=== PATIENT | female | born 1985 | race Caucasian/White ===

== ENCOUNTER 2016-04-18 11:53 | Emergency (ER) | payer MEDICAID ==
[~2016-04-18] VITALS: Wt 72.6 kg
[~2016-04-18 11:53] MED LIST: IBUP-1542 PO
[2016-04-18] MEDS ORDERED: ACETAMINOPHEN 500 MG TAB PO STA (13:23)
[2016-04-18 13:39] LABS: URINE BLOOD (Dip) POC 3+ (NEGATIVE)
--- NOTE | 2016-04-18 13:40 | ERD ---
ER Documentation Chief Complaint Date/Time DATE: 04/18/16 TIME: 13:39 Chief Complaint vaginal bleeding since 0400. mild ap and dysuria noted. 14wks preg HPI This is a 30-year-old female who presents to the emergency department today complaining of vaginal bleeding that started this morning. Patient states she has some mild abdominal pain that goes around to her back. States she has not seen an SOUBRETTE yet but has her first appointment for an ultrasound on May 09. States that she is approximately 14 weeks . States she took Tylenol last night for her headache. Denies any fevers or chills or dysuria. ROS All systems reviewed and are negative except as per history of present illness. Medications Home Meds Active Scripts Dextromethorphan Hb-Promethazine Hcl (Promethazine DM Syrup) 473 Ml Syrup, 5 ML PO Q6H Y for COUGH, #4 OZ Prov:SHAW BOOKER PA-C 04/18/16 Cephalexin* (Keflex*) 500 Mg Capsule, 500 MG PO QID for 7 Days, CAP Prov:PROSHAW MCFARLAND PA-C 04/18/16 Acetaminophen* (Tylophen*) 500 Mg Capsule, 1 CAP PO Q6H Y for PAIN AND OR ELEVATED TEMP, #30 CAP Prov:SHAW BOOKER PA-C 04/18/16 Ibuprofen* (Motrin*) 600 Mg Tab, 600 MG PO Q6, #20 TAB Prov:DENZEL TSANG MD 12/30/15 Allergies Allergies: Coded Allergies: No Known Drug Allergy (Verified Allergy, Unknown, 01/13/14) Uncoded Allergies: NKDA (Allergy, Mild, 07/22/10) PMhx/Soc Hx Alcohol Use: No Hx Substance Use: No Hx Tobacco Use: No Physical Exam Vitals Vital Signs Date Time Temp Pulse Resp B/P Pulse Ox O2 Delivery O2 Flow Rate FiO2 04/18/16 11:56 98.3 92 20 119/81 99 Physical Exam Const: No acute distress Head: Atraumatic Eyes: Normal Conjunctiva ENT: Normal External Ears, Nose throat no erythema no exudate. Neck: Full range of motion..~ No meningismus. Resp: Clear to auscultation bilaterally Cardio: Regular rate and rhythm, no murmurs Abd: Soft, diffuse mild pelvic pain non distended. Normal bowel sounds Skin: No petechiae or rashes Back: No midline or flank tenderness. No CVA tenderness. Ext: No cyanosis, or edema Neur: Awake and alert Psych: Normal Mood and Affect Result Diagram: 04/18/16 1350 Results 24 hrs Laboratory Tests Test 04/18/16 13:40 04/18/16 13:42 04/18/16 13:50 Urine Bacteria FEW Urine Bilirubin NEGATIVE Urine Clarity CLEAR Urine Color LT. YELLOW Urine Epithelial Cells MODERATE Urine Glucose NEGATIVE% Urine Hemoglobin 3+ Urine Ketones NEGATIVE Urine Leukocyte Esterase 1+ Urine Microscopic RBC 5-10/HPF Urine Microscopic WBC 10-25/HPF Urine Nitrite NEGATIVE Urine Specific [place] 1.010 Urine Total Protein NEGATIVE Urine Urobilinogen 1.0 E.U./dL Urine pH 7.0 Bedside Urine Blood 3+ Bedside Urine Glucose (UA) Negative Bedside Urine Ketones (LAB) Trace Bedside Urine Leukocyte Esterase (L 1+ Bedside Urine Nitrite (LAB) Negative Bedside Urine Protein (LAB) Trace Bedside Urine pH (LAB) 7.0 Basophils # 0.110^3/ul Basophils % 0.9% Beta HCG, Quantitative 48258.0mIU/ml Eosinophils # 0.510^3/ul Eosinophils % 6.9% Hematocrit 34.9% Hemoglobin 11.8g/dl Lymphocytes # 2.110^3/ul Lymphocytes % 30.0% Mean Corpuscular Hemoglobin 30.3pg Mean Corpuscular Hemoglobin Concent 33.8g/dl Mean Corpuscular Volume 89.5fl Mean Platelet Volume 10.3fl Monocytes # 0.610^3/ul Monocytes % 8.6% Neutrophils # 3.710^3/ul Neutrophils % 53.3% Nucleated Red Blood Cells # 0.010^3/ul Nucleated Red Blood Cells % 0.0/100WBC Platelet Count 31793^3/UL Red Blood Count 3.9010^6/ul Red Cell Distribution Width 13.4% White Blood Count 7.010^3/ul Current Medications Medications (Trade) Dose Ordered Sig/Brea Route PRN Reason Start Time Stop Time Status Last Admin Dose Admin Acetaminophen (Tylenol Tab) 500 mg ONCE STAT PO 04/18/16 13:23 04/18/16 13:25 DC 04/18/16 13:34 atient: HUNG LOVE : 1985 Age: 30 Sex: F MR #: [id number] DOS: 04/18/16 0000 Ordering MD: SHAW BOOKER PA-C Location: [facility] Room/Bed: PROCEDURE: US OB CLINICAL INDICATION: vaginal bleeding in 14 weeks TECHNIQUE: Multiple sonographic images of the pelvis were obtained. The images were reviewed on a PACS workstation. COMPARISON: None FINDINGS: The cervix is not well visualized. There is a single viable intrauterine gestation. Cardiac activity is present with 148 beats per minute. There is a vertex presentation. The placenta is anterior. There is no evidence for an abruption or placenta previa. There is a normal amount of amniotic fluid with a maximum vertical pocket of 3.3 cm. Measurements were made in order to determine age. The results are as follows (cm): BPD = 2.79 HC = 10.47 AC = 9.02 FL = 1.34 Estimated gestational age by ultrasound of approximately 14 weeks, 6 days. The estimated date of delivery by ultrasound is 10/11/2016. Reported gestational age by LMP of approximately 14 weeks, 2 days. The reported date of delivery by LMP is 10/15/2016. EFW = 103 grams (60th percentile) IMPRESSION: Single viable intrauterine gestation of approximately 14 weeks, 6 days . The estimated date of delivery is 10/11/2016 . Dating by ultrasound is within 4 days of dating by LMP. Estimated weight in the 60th percentile. RPTAT: EE Physician Harry Date Time Electronically viewed and signed by Physician Harry on 04/18/2016 14:17 RA/ CC: SHAW BOOKER PA-C Procedures/MDM This is a 30-year-old female who presents to the emergency department vaginal bleeding. Patient indicated she was 14 weeks . Given this I did obtain a complete OB workup. Laboratory work shows no elevated white blood cell count. Her hemoglobin is mildly decreased. Platelets are within normal limits. UA shows 1+ leukocyte esterase and 10-25 microscopic white blood cells. Patient will be given a prescription for Keflex for urinary tract infection. Rh status A + Beta quant hCG 00213.0 Ultrasound shows a single viable intrauterine gestation of approximately 14 weeks and 6 days. Estimated date of delivery is October 11, 2016. Estimated weight is 68th percentile. The placenta is anterior. There is no evidence for an abruption or placenta previa. There is a normal amount of amniotic fluid. Patient was given Tylenol here in the emergency department she will be given a prescription for home.. Patient also be given a prescription for Keflex for urinary tract infection. Prior to discharge patient mentioned that she had a sore throat and cough. Physical exam is benign. Do not feel the patient requires a chest x-ray. She is afebrile and otherwise well-appearing. Her oxygen saturation is 99%. Was suspicion for pneumonia, PE, abscess, pneumothorax. Low suspicion for strep pharyngitis, retropharyngeal abscess, peritonsillar abscess. Patient symptoms at this time is consistent with URI likely viral. Give her a prescription for Promethazine DM. At this time the patient is stable for discharge and outpatient management. Patient should follow up with their PCP in the next 1-2 days. They may return to the emergency department sooner for any persistent or worsening of symptoms. Patient understood and agreed with the plan. I discussed the patient with Dr. Tsang and he is in agreement with the plan. Departure Diagnosis: Primary Impression: Vaginal bleeding in Trimester: second trimester Qualified Code: O46.92 - Vaginal bleeding in , second trimester Additional Impression: URI (upper respiratory infection) URI type: unspecified URI Qualified Code: J06.9 - Upper respiratory tract infection, unspecified type Condition: SHAW Landry PA-C Apr 18, 2016 13:40
[2016-04-18 14:05] LABS: ADD SCAN DIFF NO
[2016-04-18 14:06] LABS: ADD UMIC YES; URINE BILIRUBIN (Dip) NEGATIVE (NEGATIVE); URINE BLOOD (Dip) 3+ (NEGATIVE); URINE COLOR LT. YELLOW (YELLOW); URINE GLUCOSE (Dip) NEGATIVE (NEGATIVE); URINE KETONES (Dip) NEGATIVE (NEGATIVE); URINE LEUKOCYTE ESTERASE (Dip) 1+ (NEGATIVE); URINE NITRITE (Dip) NEGATIVE (NEGATIVE); URINE TOTAL PROTEIN (Dip) NEGATIVE (NEGATIVE); URINE UROBILINOGEN (Dip) 1.0 E.U./dL (0.1-1.0)
[2016-04-18 14:11] LABS: BASOPHIL # 0.1 10^3/ul (0.0-0.1); BASOPHILS % 0.9 % (0.0-2.0); EOSINOPHILS # 0.5 10^3/ul (0.0-0.5); EOSINOPHILS % 6.9 % (0.0-7.0); HEMATOCRIT 34.9 % (37.0-47.0); HEMOGLOBIN 11.8 g/dl (12.0-16.0); LYMPHOCYTES # 2.1 10^3/ul (0.8-2.9); MEAN CORPUSCULAR HEMOGLOBIN 30.3 pg (29.0-33.0); MEAN CORPUSCULAR HGB CONC 33.8 g/dl (32.0-37.0); MEAN CORPUSCULAR VOLUME 89.5 fl (82.0-101.0); MEAN PLATELET VOLUME 10.3 fl (7.4-10.4); MONOCYTE # 0.6 10^3/ul (0.3-0.9); MONOCYTES % 8.6 % (0.0-11.0); NEUTROPHIL # 3.7 10^3/ul (1.6-7.5); NEUTROPHILS % 53.3 % (39.0-77.0); PLATELET COUNT 341 10^3/UL (140-415); RED CELL DISTRIBUTION WIDTH 13.4 % (11.5-14.5)
--- NOTE | 2016-04-18 14:17 | RADRPT ---
PROCEDURE: US OB CLINICAL INDICATION: vaginal bleeding in 14 weeks TECHNIQUE: Multiple sonographic images of the pelvis were obtained. The images were reviewed on a PACS workstation. COMPARISON: None FINDINGS: The cervix is not well visualized. There is a single viable intrauterine gestation. Cardiac activity is present with 148 beats per minute. There is a vertex presentation. The placenta is anterior. There is no evidence for an abruption or placenta previa. There is a normal amount of amniotic fluid with a maximum vertical pocket of 3.3 cm. Measurements were made in order to determine age. The results are as follows (cm): BPD =2.79 HC =10.47 AC =9.02 FL =1.34 Estimated gestational age by ultrasound of approximately 14 weeks, 6 days. The estimated date of delivery by ultrasound is 10/11/2016. Reported gestational age by LMP of approximately 14 weeks, 2 days. The reported date of delivery by LMP is 10/15/2016. EFW = 103 grams (60th percentile) IMPRESSION: Single viable intrauterine gestation of approximately 14 weeks, 6 days . The estimated date of delivery is 10/11/2016 . Dating by ultrasound is within 4 days of dating by LMP. Estimated weight in the 60th percentile. RPTAT: EE Physician Harry Date Time Electronically viewed and signed by Physician Harry on 04/18/2016 14:17 /
[2016-04-18 14:26] LABS: BACTERIA,URINE FEW
[2016-04-18] MEDS ORDERED: CEPH-443 PO (15:33)
[2016-04-18] MEDS ORDERED: ACET500C5 PO (15:33)
[2016-04-18] MEDS ORDERED: D-ME473S18 PO (15:36)
== END 2016-04-18 15:51 | disposition home or self-care (01) ==
LOC: FTE 11:53
DX: O46.92 Antepartum hemorrhage, unspecified, second trimester (principal); O99.512 Diseases of the respiratory system complicating pregnancy, second trimester; J06.9 Acute upper respiratory infection, unspecified; R10.2 Pelvic and perineal pain; Z3A.14 14 weeks gestation of pregnancy
CPT/HCPCS: 76805; 81001; 84702; 85025; 86900; 86901; Z7502; Z7610; 81003

== ENCOUNTER 2016-09-13 16:51 | Inpatient (IN) | payer MEDICAID ==
[~2016-09-13] VITALS: Ht 144.8 cm; Wt 78.4 kg
[~2016-09-13 16:51] MED LIST changes: +ACET500C5 PO; +CEPH-443 PO; +D-ME473S18 PO
[2016-09-13 17:04] VITALS: Ht 144.8 cm; Wt 78.4 kg
[2016-09-13 17:05] VITALS: BP 111/73
[2016-09-13] MEDS ORDERED: PREN1TAB17 PO (17:07)
--- NOTE | 2016-09-13 17:42 | RADRPT ---
PROCEDURE: US biophysical profile. CLINICAL INDICATION: Decreased motion. TECHNIQUE: Multiple sonographic images of the uterus were obtained. The images were revi ewed on a PACS workstation. COMPARISON: No prior studies are available for comparison. FINDINGS: There is a single live intrauterine gestation. heart rate is 154 beats per minute. The position is cephalic. The placenta is anterior grade II with no abruption or previa. The SHWETHA is 9.5 cm. (Normal = 5-20 cm.) Breathing Movement: 2 Gross Body Movement: 2 Tone: 2 Qualitative Amniotic Fluid Volume: 2 TOTAL: 8 IMPRESSION: 1. The biophysical score is 8/8. RPTAT: QQ .Tim Bee MD, MD Date Time Electronically viewed and signed by .Tim Bee MD, on 09/13/2016 17:42 .R/
[2016-09-13 19:04] LABS: ALBUMIN 3.3 g/dl (3.3-4.9); TOTAL PROTEIN 7.1 g/dl (6.1-8.1)
[2016-09-13] MEDS ORDERED: LACTATED RINGER'S 1,000 ML IV SCH (21:40)
[2016-09-13] MEDS: BETAMET NA PHOS/AC(6 MG/ML) 5ML INJ IM SCH (22:52)
[2016-09-13] MEDS: URSODIOL 300 MG CAP PO SCH (23:09)
--- NOTE | 2016-09-13 23:57 | HP ---
Date/Time of Note Date/Time of Note DATE: 09/13/16 TIME: 23:48 OB - History Hx of Present Free Text/Dictation September 13, 2016 : 8 Para: 6 Other Concerns: 31-year-old with IUP at 35 weeks and 4 days with [facility] presented with complaint of whole body itching started 2 days ago. Itching including palms and soles denies any body rash. She denies any leaking of fluid or vaginal bleeding as well as decreased movement. NST category 2 in triage. She had initially some contractions and had slight cervical change however stated at 2-3 cm dilatation with no further change. Patient is grand multiparous. Due to concern for possibility of late delivery based on initial cervical change as well as possibility of cholestasis of based on symptoms patient was admitted to antepartum service for observation. LFT and bile acids were drawn. LFT was normal. Bile acids are pending. Discussed with the patient regarding steroids. Patient was observed overnight. Will receive accelerated doses of steroid. If no cervical change occurs may consider discharge home tomorrow with continue NST twice a week as well as follow-up of bile acids with a strict close monitoring. Plan discussed with the patient and patient agreed to proceed with above plan. \ Past Family/Social History * Past Medical, Surgical, Family and Obstetric Histories reviewed from chart. OB Admission Exam Vital Signs Vital Signs Vital Signs Date Time Temp Pulse Resp B/P Pulse Ox O2 Delivery O2 Flow Rate FiO2 09/13/16 17:05 98.4 111/73 Physical Exam HEENT: WNL Lungs: Clear Abdomen: WNL Extremities: Normal Reflexes: Normal Cervical Dilatation: 2cm Effacement: 75% Station: -1 Membranes: Intact Heart Rate: 140's Accelerations: Accelerations Present Decelerations: Early Decelerations Varibility: Moderate Contractions on Admission: < 5 Minutes Apart Intensity: Mild Last 72 hours Lab Results Liver Function Test 09/13/16 17:52 Alanine Aminotransferase (ALT/SGPT) 40 Albumin 3.3 Alkaline Phosphatase 197 H Aspartate Amino Transf (AST/SGOT) 38 Direct Bilirubin 0.00 Total Protein 7.1 OB Assessment/Plan Other Assessment: IUP at 35 weeks and 4 days Whole body itching, including palms and soles no rash, Cannot rule out cholestasis of LFTs normal Bile acids pending ursodiol 300 mg p.o. 3 times daily started, contraction with cervical change Grand multiparous Admitted for observation Consider steroids due to possibility and risk for delivery May discharge home tomorrow with close surveillance antepartum testing if no further cervical change and after receive second, dose of accelerated steroid plan discussed with the patient GBS prophylaxis IZA WERNER MD Sep 13, 2016 23:57
[2016-09-14] MEDS ORDERED: AMPICILLIN 2 GM/NS (PMX) 100 ML IVPB ONE
[2016-09-14] MEDS ORDERED: AMPICILLIN 1 GM/NS (PMX) 50 ML IVPB SCH ×2 (01:00→04:00)
--- NOTE | 2016-09-14 03:43 | TRIAGE ---
OB Triage Datetime Report Generated by CPN: 09/14/2016 03:43 Datetime: 09/14/2016 20:45 Stage of : OB Triage Vaginal Exam Dilatation (cms): 2.5 Effacement (%): 70 Station: -2 Exam By: GKashman, RN Datetime: 09/14/2016 03:00 Labor Evaluation Frequency: x3 Monitor Mode: External Duration (sec)2399: 50-80 Quality: Mild Resting Tone [place]: Relaxed Contraction Comments: pt without complaint of uc pain Heart Rate FHR Baseline Rate: 130 Monitor Mode: External US FHR Baseline Changes: No Baseline Change Variability: Moderate 6-25 bpm Accelerations: 15X15 Decelerations: None Category: Category I Datetime: 09/14/2016 02:00 Labor Evaluation Frequency: x2 Monitor Mode: External Duration (sec)2399: 40-60 Quality: Mild Resting Tone [place]: Relaxed Contraction Comments: pt without complaint of uc pain. Heart Rate FHR Baseline Rate: 130 Monitor Mode: External US FHR Baseline Changes: No Baseline Change Variability: Moderate 6-25 bpm Accelerations: 15X15 Decelerations: None Category: Category I Datetime: 09/14/2016 01:00 Labor Evaluation Frequency: x1 Monitor Mode: External Duration (sec)2399: 40 Quality: Mild Resting Tone [place]: Relaxed Contraction Comments: pt states minimal uc felt at 1 out of 10 Heart Rate FHR Baseline Rate: 130 Monitor Mode: External US FHR Baseline Changes: No Baseline Change Variability: Moderate 6-25 bpm Accelerations: 15X15 Decelerations: None Category: Category I Datetime: 09/14/2016 00:00 Labor Evaluation Frequency: x2 Monitor Mode: External Duration (sec)2399: 60 Quality: Mild Resting Tone [place]: Relaxed Contraction Comments: pt feels uc at 5 out of 10 Heart Rate FHR Baseline Rate: 135 Monitor Mode: External US FHR Baseline Changes: No Baseline Change Variability: Moderate 6-25 bpm Accelerations: 15X15 Decelerations: None Category: Category I Pain Assessment Pain Scale: 6 Pain Presence: Intermittent Pain Type: Cramping Pain Location: Abdomen Pain Goal: 0 Pain Assessment Comments: pt feels uc at 5 out of 10. Datetime: 09/13/2016 23:00 Labor Evaluation Frequency: x2 Monitor Mode: External Duration (sec)2399: 70-90 Quality: Mild Resting Tone [place]: Relaxed Contraction Comments: pt c/o uc pain att 5 out of 10. Heart Rate FHR Baseline Rate: 130 Monitor Mode: External US FHR Baseline Changes: No Baseline Change Variability: Moderate 6-25 bpm Accelerations: 15X15 Decelerations: None Category: Category I Pain Assessment Pain Scale: 5 Pain Presence: Intermittent Pain Type: Cramping Pain Location: Abdomen Pain Goal: 0 Pain Assessment Comments: will po hydrate Datetime: 09/13/2016 22:09 Stage of : Antepartum Temperature Route: Oral Datetime: 09/13/2016 21:48 Assessment Type: Admission Assessment Vaginal Bleeding: None Maternal Assessment Level of Consciousness: Fully Conscious DTR's/Clonus: DTRs 2+; No Clonus Headache: Denies Blurred Vision: No Respiratory Effort: Unlabored; Regular Rhythm; Equal Expansion Breath Sounds, Left: Clear and Equal Breath Sounds, Right: Clear and Equal Nausea/Vomiting: Denies RUQ Epigastric Pain: Denies Lower Extremities Edema: None Degree: None Upper Extremities Edema: None Degree: None Facial Edema: None Fall Risk Assessment History of Falling: (0) No Secondary Diagnosis: (0) No Ambulatory Aid: (0) Bedrest/Nurse Assist IV Therapy: (0) No Gait: (0) Normal/Bedrest/Immobile Mental Status: (0) Oriented to Own Ability Fall Score: 0 Fall Risk Score Definition: No Risk: No action required Labor Evaluation Frequency: irregular Duration (sec)2399: 70-90 Quality: Mild Resting Tone [place]: Relaxed Contraction Comments: pt c/o ucs at 5 out of 10 on the pain scale. Will po hydrate, Heart Rate FHR Baseline Rate: 130 Variability: Moderate 6-25 bpm Accelerations: 15X15 Decelerations: None Category: Category I Pain Assessment Pain Scale: 5 Pain Presence: Intermittent Pain Type: Cramping Pain Location: Abdomen Pain Goal: 0 Membrane Status: Intact Datetime: 09/13/2016 21:29 Stage of : OB Triage Labor Evaluation Frequency: 5-10 Monitor Mode: External Duration (sec)2399: 50-60 Pattern: Normal: <= 5 Contractions in 10 Minutes Resting Tone [place]: Relaxed Heart Rate FHR Baseline Rate: 130 Monitor Mode: External US Variability: Moderate 6-25 bpm Accelerations: 15X15 Decelerations: None Category: Category I Pain Assessment Pain Scale: 2 Pain Presence: Intermittent Pain Type: Contraction Pain Location: Abdomen Pain Relief Measures: Comfort Measures Datetime: 09/13/2016 20:55 Stage of : OB Triage Datetime: 09/13/2016 20:29 Stage of : OB Triage Labor Evaluation Frequency: 5-7 Monitor Mode: External Duration (sec)2399: 40-60 Pattern: Normal: <= 5 Contractions in 10 Minutes Resting Tone [place]: Relaxed Heart Rate FHR Baseline Rate: 125 Monitor Mode: External US Variability: Moderate 6-25 bpm Accelerations: 15X15 Decelerations: None Category: Category I Pain Assessment Pain Scale: 7 Pain Presence: Intermittent Pain Type: Contraction Pain Location: Abdomen Pain Relief Measures: Comfort Measures Datetime: 09/13/2016 19:35 Stage of : OB Triage Vaginal Exam Dilatation (cms): 2.5 Effacement (%): 70 Station: -2 Exam By: VIVIEN Galdamez Vaginal Bleeding: None Cervix, Consistency: Soft Cervix, Position: Midposition Presentation 'A': Cephalic Datetime: 09/13/2016 19:31 Stage of : OB Triage Labor Evaluation Frequency: 5-8 Monitor Mode: External Duration (sec)2399: 40-80 Pattern: Normal: <= 5 Contractions in 10 Minutes Resting Tone [place]: Relaxed Heart Rate FHR Baseline Rate: 120 Monitor Mode: External US Variability: Moderate 6-25 bpm Accelerations: 15X15 Decelerations: None Category: Category I Pain Assessment Pain Scale: 7 Pain Presence: Intermittent Pain Type: Contraction Pain Location: Abdomen Pain Relief Measures: Comfort Measures Datetime: 09/13/2016 19:30 Stage of : OB Triage Labor Evaluation Frequency: irregular Monitor Mode: External Duration (sec)2399: 50-80 Pattern: Normal: <= 5 Contractions in 10 Minutes Resting Tone [place]: Relaxed Heart Rate FHR Baseline Rate: 125 Monitor Mode: External US Variability: Moderate 6-25 bpm Accelerations: 15X15 Decelerations: None Category: Category I Pain Assessment Pain Scale: 7 Pain Presence: Intermittent Pain Type: Contraction Pain Location: Abdomen Pain Relief Measures: Comfort Measures Datetime: 09/13/2016 19:22 Stage of : OB Triage Monitor Mode: External Monitor Mode: External US Datetime: 09/13/2016 19:17 Stage of : OB Triage Datetime: 09/13/2016 17:40 Comments: BACK ON MONITOR Datetime: 09/13/2016 17:00 Stage of : OB Triage Assessment Type: Triage Maternal Assessment Level of Consciousness: Fully Conscious DTR's/Clonus: DTRs 2+; No Clonus Headache: Denies Blurred Vision: No Respiratory Effort: Unlabored; Regular Rhythm; Equal Expansion Breath Sounds, Left: Clear and Equal Breath Sounds, Right: Clear and Equal Nausea/Vomiting: Denies RUQ Epigastric Pain: Denies Lower Extremities Edema: None Degree: None Upper Extremities Edema: None Degree: None Facial Edema: None Temperature Route: Oral Fall Risk Assessment History of Falling: (0) No Secondary Diagnosis: (0) No Ambulatory Aid: (0) Bedrest/Nurse Assist IV Therapy: (0) No Gait: (0) Normal/Bedrest/Immobile Mental Status: (0) Oriented to Own Ability Fall Score: 0 Fall Risk Score Definition: No Risk: No action required Labor Evaluation Frequency: X1 Monitor Mode: External Duration (sec)2399: 30-40 Pattern: Normal: <= 5 Contractions in 10 Minutes Datetime: 09/13/2016 16:53 Time of Arrival: 09/13/2016 22:00 EGA: 35.4 Arrived By: Ambulatory Arrived From: Home Datetime: 09/13/2016 16:45 Time of Arrival: 09/13/2016 16:45 Arrived By: Ambulatory Arrived From: Dr. Diop Chief Complaint: SENT FROM DR. DIOP TO R/O CHOLESTASIS NST. BPP, BILE ACIDS Movement: Present Contractions: Irregular Time Contractions Began: 09/12/2016 17:00 Rupture of Membranes: Denies Vaginal Bleeding: None Vaginal Discharge: Denies Recent Sexual Intercouse: Denies Abdominal Trauma: Not Applicable Patient Complaints: Contractions Time Provider Notified: 09/13/2016 17:02 Provider Notified: Initial Plan: EFM, VS, MAX NGUYEN
--- NOTE | 2016-09-14 07:59 | PN ---
Date/Time of Note Date/Time of Note DATE: 09/14/16 TIME: 07:53 OB Subjective Subjective Subjective 35 weeks 5 days, resting in bed minimal itching on both palms currently on ursodiol 300 mg 3 times daily second dose of steroid do this evening, FHT category 1, result of the bile acid not available, perinatology consult requested Plan, pending perinatologist recommendation OB Assessment/Plan Reason for admission: other (Suspected cholestasis of ) Plan: Expectant Management JANET EID MD Sep 14, 2016 07:59
[2016-09-14] MEDS: URSODIOL 300 MG CAP PO SCH ×3 (08:49→20:54)
[2016-09-14] MEDS: PRENATAL VITAMIN PO SCH (08:50)
[2016-09-14] MEDS ORDERED: URSODIOL 300 MG CAP PO SCH (09:00)
[2016-09-14] MEDS: BETAMET NA PHOS/AC(6 MG/ML) 5ML INJ IM SCH (12:46)
[2016-09-15] MEDS ORDERED: ACETAMINOPHEN 325 MG TAB PO PRN (08:00)
[2016-09-15] MEDS: URSODIOL 300 MG CAP PO SCH ×2 (08:42→12:42)
[2016-09-15] MEDS: PRENATAL VITAMIN PO SCH (08:43)
--- NOTE | 2016-09-15 14:13 | DS ---
Date/Time of Note Date/Time of Note DATE: 09/15/16 TIME: 14:11 Discharge Summary Admission/Discharge Info Admit Date/Time Sep 13, 2016 at 21:29 Discharge Date/Time Discharge Diagnosis iup 35 weeks rule out cholestatis Consults MFM Hospital Course pt admitted for rule our cholestais . labs wnl bile acids pending seen by MFM and cleared to [place] home NST sunday er precautions Home Meds Active Scripts Dextromethorphan Hb-Promethazine Hcl (Promethazine DM Syrup) 473 Ml Syrup, 5 ML PO Q6H Y for COUGH, #4 OZ Prov:SHAW BOOKERC 04/18/16 Cephalexin* (Keflex*) 500 Mg Capsule, 500 MG PO QID for 7 Days, CAP Prov:SHAW BOOKERC 04/18/16 Acetaminophen* (Tylophen*) 500 Mg Capsule, 1 CAP PO Q6H Y for PAIN AND OR ELEVATED TEMP, #30 CAP Prov:SHAW BOOKER PA-C 04/18/16 Ibuprofen* (Motrin*) 600 Mg Tab, 600 MG PO Q6, #20 TAB Prov:DNEZEL CARCAMO MD 12/30/15 Reported Medications Vit-Iron Fumarate-FA ( Tablet) 1 Each Tablet, 1 TAB PO, TAB 09/13/16 Primary Care Provider Care Physician No Primary Pending Labs LFT wnl bile acids pending to be follow up with own DANIELLE WYATT MD Sep 15, 2016 14:13
--- NOTE | 2016-09-15 15:25 | PERINOTE ---
Date/Time of Note Date/Time of Note DATE: 09/15/16 TIME: 14:38 Assessment/Recommendations Other Assessments Late IUP Itching, possible cholestasis. Bile acids pending Recommendations: Intrahepatic Cholestasis of (ICP) ICP occurs in 0.1-15% of pregnancies most often in the third trimester of . It is characterized by generalized and often intolerable pruritis, especially of the palms and soles of the feet in the absence of a rash ( although excoriations may be present). An elevation of fasting serum bile acids >10mol/L confirms the diagnosis; other liver function tests (such as AST and ALT) may also be abnormal. The exact cause of the disorder is unknown but it is likely multifactorial including genetic, hormonal and environmental factors. Maternal outcome is generally good with complete resolution of the disorder shortly after delivery of the infant. Improvement of the symptomotology can be achieved while with the use of antihistamines and ursodiol. risks are significant and include prematurity (19-60%), intrapartum distress (22-41%), and intrauterine demise (0.75-1.6%). demise may be more common after 37 weeks of gestation. It may occur despite recent normal testing. risk can be predicted based on the fasting bile acid levels, with mild disease designated by levels 10-39mol/L, moderate disease by levels 40-99mol/ L and severe disease >100mol/L. The risk of complications appears to increase with increasing bile acid levels. IF THE PATIENT IS FOUND TO HAVE CHOLESTASIS: 1. Maternal management: --Treatment of ICP is best achieved with ursodeoxycholic acid (ursodiol) dosed at 15mg/kg/day; for many patients this approximates 1g/day in divided doses. --Antihistamines such as Benadryl may be used for added symptom relief. --NOTE: As ICP has been reported to be associated with lipid malabsorption , there could be a risk of a coagulopathy due to vitamin K deficiency. This appears to be rare. There are no recommendations for treatment, but it seems prudent to encourage the patient to take a vitamin K-containing vitamin. 2. Recommended weight gain: BMI < 18.5 (underweight) Total weight gain 28-40 lbs, 1-1.3 lbs/wk in the third trimester BMI 18.5-24.9 (normal) Total weight gain 25-35 lbs, 0.8-1 lbs/wk in the third trimester BMI 25.0-29.9 (overweight) Total weight gain 15-25 lbs, 0.5-0.7 lbs/wk in the third trimester BMI >30 (obese) Total weight gain 11-20 lbs, 0.4-0.6 lbs/wk in the third trimester 3. management --Monitoring of growth: Fundal height assessment at care visits. Refer for ultrasound for growth if concern for altered growth. --Monitoring of well being: Twice-weekly testing starting at 32 weeks in patients whose total serum bile acids exceed 40mol/L. Consider weekly testing for mild ICP ( bile acids 10-39mol/L). NOTE: Although ursodiol treatment may decrease serum bile acids, its effect on outcome is unproven. It may be prudent to continue to monitor as high-risk a with any bile acid values in the high risk range. 4. Laboratory studies: --Diagnosis is made by serum bile acid levels that exceed 10mol/L. Bile acid determination should be done with the patient fasting. Patients with cholestasis may have an exaggerated rise in bile acids after meals --Bile acids as well as AST and ALT can be assessed on a weekly basis until delivery. 5. Delivery: NOTE: There is no data indicating an optimal time of delivery in cholestasis. Delivery timing is a matter of expert opinion, and is generally related to fasting bile acid levels. Other factors, such as maternal LFTs may also be taken into account. All of the following recommendations assume reassuring testing and stable maternal condition. --For severe disease, especially with maternal jaundice, early delivery (36 weeks) with or without confirmation of lung maturity is advised. --For moderate disease, delivery at 37 weeks has been proposed --For mild disease the can be allowed to continue to term, although most would not allow the to continue beyond 39-40 weeks. 6. management: Ursodiol can be continued in the period until resolution of symptoms. OB Subjective Free Text/Dictaton Patient admitted with contractions and itching, undergoing work up for cholestasis. LFTs are in the normal range for HD# 3 IUP @ 35W4D Complaints/Overnight events Denies contractions at this time. Bile acid levels pending Current Medications Current Medications Prenat Multivit/ Pen Rider/Iron/Folic Ac () 1 tab DAILY PO Last administered on 09/15/16 08:43; Admin Dose 1 TAB; Start 09/14/16 at 09:00 Ursodiol (Actigall) 300 mg TID PO Last administered on 09/15/16 12:42; Admin Dose 300 MG; Start 09/13/16 at 22:51 Acetaminophen (Tylenol Tab) 650 mg Q6H PRN PO PAIN AND OR ELEVATED TEMP Last administered on 09/15/16 07:38; Admin Dose 650 MG; Start 09/15/16 at 08:00 Past Medical History Medical History: no pertinent history Surgical History: no surgical history Para: 6 : 8 LMP (Females 10-50): Family History Significant Family History: no pertinent family hx Social History Smoker: non-smoker Alcohol: none Drugs: none OB Admission Exam Physical Exam Vitals: Vital Signs Date Time Temp Pulse Resp B/P Pulse Ox O2 Delivery O2 Flow Rate FiO2 09/13/16 17:05 98.4 111/73 09/15/16 81 99/57 Abdomen: WNL Heart Rate: 120's Accelerations: Accelerations Present Decelerations: No Decelerations Varibility: Moderate Contractions on Admission: None Last 72 hours Lab Results Liver Function Test 09/13/16 17:52 Alanine Aminotransferase (ALT/SGPT) 40 Albumin 3.3 Alkaline Phosphatase 197 H Aspartate Amino Transf (AST/SGOT) 38 Direct Bilirubin 0.00 Total Protein 7.1 Copies To: CC: JANET EID MD, MARIE H MD Sep 15, 2016 15:25
== END 2016-09-15 15:36 | disposition home or self-care (01) | DRG 781 ==
LOC: OBT 16:51 → L-D 16:51 → OBG 21:29 → OBT 21:52
PROVIDERS: ADMIT Obstetrics & Gynecology; ATTEND Obstetrics & Gynecology
DX: O26.613 Liver and biliary tract disorders in pregnancy, third trimester (principal); K83.1 Obstruction of bile duct; O26.893 Other specified pregnancy related conditions, third trimester; Z3A.35 35 weeks gestation of pregnancy
CPT/HCPCS: 76818; 80076; 83789; G0463; J0702; J7120

== ENCOUNTER 2016-09-20 12:45 | Inpatient (IN) | payer MEDICAID ==
[~2016-09-20] VITALS: Ht 144.8 cm; Wt 78.2 kg
[~2016-09-20 12:45] MED LIST changes: -ACET500C5 PO; -CEPH-443 PO; -D-ME473S18 PO; -IBUP-1542 PO; +PREN1TAB17 PO
[2016-09-20 13:11] VITALS: Ht 144.8 cm; Wt 78.2 kg
[2016-09-20 13:12] VITALS: BP_SYST 103; PULSE 93; RESP 18
--- NOTE | 2016-09-20 15:49 | RADRPT ---
PROCEDURE: US OB biophysical profile. CLINICAL INDICATION: decreased movements, abdominal pain TECHNIQUE: Multiple sonographic images of the pelvis were obtained. The images were reviewed on a PACS workstation. COMPARISON: No prior studies are available for comparison. FINDINGS: There is a single viable intrauterine gestation. Cardiac activity is present with 112 beats per min [place]. There is a vertex presentation. The placenta is anterior. There is no evidence of placental abruption. There is a decreased amount of amniotic fluid with an SHWETHA = 6.3 cm. Biophysical profile: movement 2/2 tone 2/2. breathing 2/2 SHWETHA 2/2 Total 09/26 RPTAT: AA . IMPRESSION: Normal biophysical profile. Decreased SHWETHA. .Victorino Boss MD, Date Time Electronically viewed and signed by .Victorino Boss MD, on 09/20/2016 15:48 .S/
--- NOTE | 2016-09-20 15:58 | TRIAGE ---
OB Triage Datetime Report Generated by CPN: 09/20/2016 15:57 Datetime: 09/20/2016 15:29 Stage of : OB Triage Maternal Assessment Level of Consciousness: Fully Conscious Labor Evaluation Frequency: 2uc/hr Monitor Mode: External Pattern: Normal: <= 5 Contractions in 10 Minutes Resting Tone [place]: Relaxed Heart Rate FHR Baseline Rate: 120 Monitor Mode: External US Variability: Moderate 6-25 bpm Accelerations: 15X15 Decelerations: None Pain Assessment Pain Scale: 3 Pain Presence: Intermittent Pain Goal: 0 Vaginal Exam Membrane Status: Intact Vaginal Bleeding: None Datetime: 09/20/2016 14:30 Stage of : OB Triage Maternal Assessment Level of Consciousness: Fully Conscious Labor Evaluation Frequency: 2uc/hr Monitor Mode: External Pattern: Normal: <= 5 Contractions in 10 Minutes Resting Tone [place]: Relaxed Heart Rate FHR Baseline Rate: 135 Monitor Mode: External US Variability: Moderate 6-25 bpm Accelerations: 15X15 Decelerations: None Category: Category I Pain Assessment Pain Scale: 3 Pain Presence: Intermittent Pain Goal: 0 Vaginal Exam Membrane Status: Intact Vaginal Bleeding: None Datetime: 09/20/2016 13:28 Stage of : OB Triage Labor Evaluation Frequency: 0 Pattern: Normal: <= 5 Contractions in 10 Minutes Resting Tone [place]: Relaxed Heart Rate FHR Baseline Rate: 135 Monitor Mode: External US Variability: Moderate 6-25 bpm Accelerations: 15X15 Decelerations: None Category: Category I Datetime: 09/20/2016 13:18 Time of Arrival: 09/20/2016 12:42 EGA: 36.4 Arrived By: Ambulatory Arrived From: Home Chief Complaint: ITCHING Movement: Present Contractions: Irregular Time Contractions Began: 09/18/2016 00:00 Rupture of Membranes: Denies Vaginal Discharge: Denies Recent Sexual Intercouse: Denies Abdominal Trauma: Not Applicable Patient Complaints: Other Time Provider Notified: 09/20/2016 13:30 Provider Notified: STANTON Initial Plan: NST Datetime: 09/20/2016 13:10 Assessment Type: Admission Assessment Maternal Assessment Level of Consciousness: Fully Conscious DTR's/Clonus: DTRs 2+; No Clonus Headache: Denies Blurred Vision: No Respiratory Effort: Unlabored; Regular Rhythm; Equal Expansion Breath Sounds, Left: Clear and Equal Breath Sounds, Right: Clear and Equal Nausea/Vomiting: Denies RUQ Epigastric Pain: Denies Lower Extremities Edema: None Degree: None Upper Extremities Edema: None Degree: None Facial Edema: None Fall Risk Assessment History of Falling: (0) No Secondary Diagnosis: (0) No Ambulatory Aid: (0) Bedrest/Nurse Assist IV Therapy: (0) No Gait: (0) Normal/Bedrest/Immobile Mental Status: (0) Oriented to Own Ability Fall Score: 0 Fall Risk Score Definition: No Risk: No action required Datetime: 09/15/2016 14:08 Category: Category I Pain Presence: None/Denies Datetime: 09/15/2016 14:00 Stage of : Antepartum Maternal Assessment Level of Consciousness: Fully Conscious Headache: Denies Nausea/Vomiting: Denies RUQ Epigastric Pain: Denies Labor Evaluation Frequency: 0/hr Monitor Mode: External Heart Rate FHR Baseline Rate: 135 Monitor Mode: External US Variability: Moderate 6-25 bpm Accelerations: 15X15 Decelerations: None Pain Assessment Pain Scale: 0 Vaginal Exam Membrane Status: Intact Vaginal Bleeding: None Datetime: 09/15/2016 13:00 Stage of : Antepartum Maternal Assessment Level of Consciousness: Fully Conscious Headache: Denies Nausea/Vomiting: Denies RUQ Epigastric Pain: Denies Labor Evaluation Frequency: 0/hr Monitor Mode: External Heart Rate FHR Baseline Rate: 135 Monitor Mode: External US Variability: Moderate 6-25 bpm Accelerations: 15X15 Decelerations: None Pain Assessment Pain Scale: 0 Vaginal Exam Membrane Status: Intact Vaginal Bleeding: None Datetime: 09/15/2016 12:20 Pain Presence: None/Denies Datetime: 09/15/2016 12:00 Stage of : Antepartum Maternal Assessment Level of Consciousness: Fully Conscious Headache: Denies Nausea/Vomiting: Denies RUQ Epigastric Pain: Denies Labor Evaluation Frequency: 0/hr Monitor Mode: External Heart Rate FHR Baseline Rate: 135 Monitor Mode: External US Variability: Moderate 6-25 bpm Accelerations: 15X15 Decelerations: None Pain Assessment Pain Scale: 0 Vaginal Exam Membrane Status: Intact Vaginal Bleeding: None Datetime: 09/15/2016 11:00 Stage of : Antepartum Maternal Assessment Level of Consciousness: Fully Conscious Headache: Denies Nausea/Vomiting: Denies RUQ Epigastric Pain: Denies Labor Evaluation Frequency: 0/hr Monitor Mode: External Heart Rate FHR Baseline Rate: 135 Monitor Mode: External US Variability: Moderate 6-25 bpm Accelerations: 15X15 Decelerations: None Pain Assessment Pain Scale: 0 Vaginal Exam Membrane Status: Intact Vaginal Bleeding: None Datetime: 09/15/2016 10:21 Maternal Assessment Level of Consciousness: Fully Conscious Headache: Denies Blurred Vision: No Respiratory Effort: Unlabored Nausea/Vomiting: Denies RUQ Epigastric Pain: Denies Pain Presence: None/Denies Datetime: 09/15/2016 10:00 Stage of : Antepartum Maternal Assessment Level of Consciousness: Fully Conscious Headache: Denies Nausea/Vomiting: Denies RUQ Epigastric Pain: Denies Labor Evaluation Frequency: 0/hr Monitor Mode: External Heart Rate FHR Baseline Rate: 125 Monitor Mode: External US Variability: Moderate 6-25 bpm Accelerations: 15X15 Decelerations: None Pain Assessment Pain Scale: 0 Vaginal Exam Membrane Status: Intact Vaginal Bleeding: None Datetime: 09/15/2016 09:00 Stage of : Antepartum Maternal Assessment Level of Consciousness: Fully Conscious Headache: Denies (Annotations: resolved w/ tylenol) Nausea/Vomiting: Denies RUQ Epigastric Pain: Denies Labor Evaluation Frequency: 0/hr Monitor Mode: External Heart Rate FHR Baseline Rate: 125 Monitor Mode: External US Variability: Moderate 6-25 bpm Accelerations: 15X15 Decelerations: None Pain Assessment Pain Scale: 0 Vaginal Exam Membrane Status: Intact Vaginal Bleeding: None Datetime: 09/15/2016 08:41 Maternal Assessment Level of Consciousness: Fully Conscious Headache: Denies Blurred Vision: No Respiratory Effort: Unlabored Nausea/Vomiting: Denies Pain Presence: None/Denies Datetime: 09/15/2016 08:00 Stage of : Antepartum Maternal Assessment Level of Consciousness: Fully Conscious Headache: Frontal Nausea/Vomiting: Denies RUQ Epigastric Pain: Denies Labor Evaluation Frequency: occassional Monitor Mode: External Heart Rate FHR Baseline Rate: 125 Monitor Mode: External US Variability: Moderate 6-25 bpm Accelerations: 15X15 Decelerations: None Pain Assessment Pain Scale: 3 Pain Presence: Constant Pain Type: Ache Pain Location: Head Pain Relief Measures: Pain Medication Given Pain Assessment Comments: pt. states tylenol helping h.a. Vaginal Exam Membrane Status: Intact Vaginal Bleeding: None Datetime: 09/15/2016 07:36 Labor Evaluation Frequency: occassional Monitor Mode: External Duration (sec)2399: 60 Quality: Mild Resting Tone [place]: Relaxed Heart Rate FHR Baseline Rate: 130 Variability: Moderate 6-25 bpm Accelerations: 15X15 Decelerations: None Datetime: 09/15/2016 07:11 Assessment Type: Ongoing Assessment Maternal Assessment Level of Consciousness: Fully Conscious Maternal Assessment Level of Consciousness: Fully Conscious DTR's/Clonus: DTRs 2+; No Clonus DTR's/Clonus: DTRs 2+ Headache: Frontal Blurred Vision: No Blurred Vision: No Respiratory Effort: Unlabored; Regular Rhythm; Equal Expansion Respiratory Effort: Unlabored Breath Sounds, Left: Clear and Equal Breath Sounds, Left: Clear and Equal Breath Sounds, Right: Clear and Equal Breath Sounds, Right: Clear and Equal Nausea/Vomiting: Denies Nausea/Vomiting: Denies RUQ Epigastric Pain: Denies RUQ Epigastric Pain: Denies Lower Extremities Edema: None Upper Extremities Edema: None Facial Edema: None Fall Risk Assessment History of Falling: (0) No Secondary Diagnosis: (0) No Ambulatory Aid: (0) Bedrest/Nurse Assist IV Therapy: (0) No Gait: (0) Normal/Bedrest/Immobile Mental Status: (0) Oriented to Own Ability Fall Score: 0 Fall Risk Score Definition: No Risk: No action required Pain Assessment Pain Scale: 5 Pain Presence: Constant Pain Type: Ache Pain Location: Head; Right Foot; Left Foot Datetime: 09/15/2016 06:36 Labor Evaluation Frequency: 0 Monitor Mode: External Heart Rate FHR Baseline Rate: 135 Monitor Mode: External US FHR Baseline Changes: No Baseline Change Variability: Moderate 6-25 bpm Accelerations: 15X15 Decelerations: None Category: Category I Datetime: 09/15/2016 06:00 Labor Evaluation Frequency: 0 Monitor Mode: External Heart Rate FHR Baseline Rate: 135 Monitor Mode: External US FHR Baseline Changes: No Baseline Change Variability: Moderate 6-25 bpm Accelerations: 15X15 Decelerations: None Category: Category I Datetime: 09/15/2016 05:00 Labor Evaluation Frequency: 0 Monitor Mode: External Heart Rate FHR Baseline Rate: 135 Monitor Mode: External US FHR Baseline Changes: No Baseline Change Variability: Moderate 6-25 bpm Accelerations: 15X15 Decelerations: None Category: Category I Datetime: 09/15/2016 04:43 Temperature Route: Oral Datetime: 09/15/2016 04:00 Labor Evaluation Frequency: 0 Monitor Mode: External Heart Rate FHR Baseline Rate: 125 Monitor Mode: External US FHR Baseline Changes: No Baseline Change Variability: Moderate 6-25 bpm Accelerations: 15X15 Decelerations: None Category: Category I Datetime: 09/15/2016 03:00 Labor Evaluation Frequency: 0 Monitor Mode: External Heart Rate FHR Baseline Rate: 125 Monitor Mode: External US FHR Baseline Changes: No Baseline Change Variability: Moderate 6-25 bpm Accelerations: 15X15 Decelerations: None Category: Category I Datetime: 09/15/2016 02:00 Labor Evaluation Frequency: 0 Monitor Mode: External Heart Rate FHR Baseline Rate: 135 Monitor Mode: External US FHR Baseline Changes: No Baseline Change Variability: Moderate 6-25 bpm Accelerations: 15X15 Decelerations: None Category: Category I Datetime: 09/15/2016 01:40 Temperature Route: Oral Datetime: 09/15/2016 01:00 Labor Evaluation Frequency: 2/hr Monitor Mode: External Duration (sec)2399: 60-100 Quality: Mild Pattern: Normal: <= 5 Contractions in 10 Minutes Resting Tone [place]: Relaxed Heart Rate FHR Baseline Rate: 135 Monitor Mode: External US FHR Baseline Changes: No Baseline Change Variability: Moderate 6-25 bpm Accelerations: 15X15 Decelerations: None Category: Category I Datetime: 09/15/2016 00:00 Labor Evaluation Frequency: IRREGULAR Monitor Mode: External Duration (sec)2399: 60 Quality: Mild Pattern: Normal: <= 5 Contractions in 10 Minutes Resting Tone [place]: Relaxed Heart Rate FHR Baseline Rate: 145 Monitor Mode: External US FHR Baseline Changes: No Baseline Change Variability: Moderate 6-25 bpm Accelerations: 15X15 Decelerations: None Category: Category I Datetime: 09/14/2016 22:59 Labor Evaluation Frequency: 1/hr Monitor Mode: External Duration (sec)2399: 100 Quality: Mild Pattern: Normal: <= 5 Contractions in 10 Minutes Resting Tone [place]: Relaxed Heart Rate FHR Baseline Rate: 125 FHR Baseline Changes: No Baseline Change Variability: Moderate 6-25 bpm Accelerations: 15X15 Decelerations: None Category: Category I Datetime: 09/14/2016 22:00 Labor Evaluation Frequency: 0 Monitor Mode: External Heart Rate FHR Baseline Rate: 125 FHR Baseline Changes: No Baseline Change Variability: Moderate 6-25 bpm Accelerations: 15X15 Decelerations: None Category: Category I Datetime: 09/14/2016 21:00 Labor Evaluation Frequency: 2/hr Monitor Mode: External Duration (sec)2399: 60-100 Quality: Mild Pattern: Normal: <= 5 Contractions in 10 Minutes Resting Tone [place]: Relaxed Heart Rate FHR Baseline Rate: 125 Monitor Mode: External US FHR Baseline Changes: No Baseline Change Variability: Moderate 6-25 bpm Accelerations: 15X15 Decelerations: None Category: Category I Datetime: 09/14/2016 20:00 Labor Evaluation Frequency: 13-25 Monitor Mode: External Duration (sec)2399: 60-100 Quality: Mild Pattern: Normal: <= 5 Contractions in 10 Minutes Resting Tone [place]: Relaxed Heart Rate FHR Baseline Rate: 125 FHR Baseline Changes: No Baseline Change Variability: Moderate 6-25 bpm Accelerations: 15X15 Decelerations: None Category: Category I Datetime: 09/14/2016 19:25 Stage of : OB Triage Assessment Type: Ongoing Assessment Maternal Assessment Level of Consciousness: Fully Conscious DTR's/Clonus: DTRs 2+; No Clonus Headache: Denies Blurred Vision: No Respiratory Effort: Unlabored; Regular Rhythm; Equal Expansion Breath Sounds, Left: Clear and Equal Breath Sounds, Right: Clear and Equal Nausea/Vomiting: Denies RUQ Epigastric Pain: Denies Lower Extremities Edema: None Degree: None Upper Extremities Edema: None Degree: None Facial Edema: None Temperature Route: Oral Fall Risk Assessment History of Falling: (0) No Secondary Diagnosis: (0) No Ambulatory Aid: (0) Bedrest/Nurse Assist Gait: (0) Normal/Bedrest/Immobile Mental Status: (0) Oriented to Own Ability Datetime: 09/14/2016 18:52 Labor Evaluation Frequency: 2 NOTED IN ONE HOUR Monitor Mode: External Duration (sec)2399: 50-60 Pattern: Normal: <= 5 Contractions in 10 Minutes Resting Tone [place]: Relaxed Heart Rate FHR Baseline Rate: 125 Monitor Mode: External US FHR Baseline Changes: No Baseline Change Variability: Moderate 6-25 bpm Accelerations: 15X15 Decelerations: None Category: Category I Datetime: 09/14/2016 17:52 Labor Evaluation Frequency: ONE NOTED IN ONE HOUR Monitor Mode: External Duration (sec)2399: 60 Pattern: Normal: <= 5 Contractions in 10 Minutes Heart Rate FHR Baseline Rate: 120 Monitor Mode: External US FHR Baseline Changes: Bradycardia Variability: Moderate 6-25 bpm Accelerations: 15X15 Decelerations: None Category: Category I Datetime: 09/14/2016 16:58 Labor Evaluation Frequency: ONE NOTED IN ONE HOUR Monitor Mode: External Duration (sec)2399: 60 Pattern: Normal: <= 5 Contractions in 10 Minutes Resting Tone [place]: Relaxed Contraction Comments: ABDOMEN SOFT TO PALPATION. DENIES FEELING ANY UC'S Heart Rate FHR Baseline Rate: 120 Monitor Mode: External US FHR Baseline Changes: No Baseline Change Variability: Moderate 6-25 bpm Accelerations: 15X15 Decelerations: None Category: Category I Datetime: 09/14/2016 15:59 Labor Evaluation Frequency: 0 Labor Evaluation Frequency: ONE NOTED IN ONE HOUR Monitor Mode: External Duration (sec)2399: 0 Pattern: Normal: <= 5 Contractions in 10 Minutes Resting Tone [place]: Relaxed Heart Rate FHR Baseline Rate: 120 Monitor Mode: External US FHR Baseline Changes: No Baseline Change Variability: Moderate 6-25 bpm Accelerations: 15X15 Decelerations: None Category: Category I Datetime: 09/14/2016 14:58 Labor Evaluation Frequency: 0 Monitor Mode: External Duration (sec)2399: 0 Pattern: Normal: <= 5 Contractions in 10 Minutes Resting Tone [place]: Relaxed Contraction Comments: DENIES ANY UC'S Heart Rate FHR Baseline Rate: 125 Monitor Mode: External US FHR Baseline Changes: No Baseline Change Variability: Moderate 6-25 bpm Accelerations: 15X15 Decelerations: None Category: Category I Datetime: 09/14/2016 14:00 Labor Evaluation Frequency: 0NE N0TED IN ONE HOUR Monitor Mode: External Duration (sec)2399: 50 Pattern: Normal: <= 5 Contractions in 10 Minutes Resting Tone [place]: Relaxed Heart Rate FHR Baseline Rate: 120 Monitor Mode: External US FHR Baseline Changes: No Baseline Change Variability: Moderate 6-25 bpm Accelerations: 15X15 Decelerations: None Category: Category I Datetime: 09/14/2016 12:53 Labor Evaluation Frequency: 2 NOTED IN ONE HOUR Monitor Mode: External Duration (sec)2399: 50-80 Pattern: Normal: <= 5 Contractions in 10 Minutes Resting Tone [place]: Relaxed Contraction Comments: DENIES ANY DISCOMFORT. ABDOMEN SOFT TO PALPATION Heart Rate FHR Baseline Rate: 130 Monitor Mode: External US FHR Baseline Changes: No Baseline Change Variability: Moderate 6-25 bpm Accelerations: 15X15 Decelerations: None Category: Category I Datetime: 09/14/2016 11:55 Labor Evaluation Frequency: ONE NOTED IN ONE HOUR Monitor Mode: External Duration (sec)2399: 60 Pattern: Normal: <= 5 Contractions in 10 Minutes Resting Tone [place]: Relaxed Heart Rate FHR Baseline Rate: 135 Monitor Mode: External US FHR Baseline Changes: No Baseline Change Variability: Moderate 6-25 bpm Accelerations: 15X15 Decelerations: None Category: Category I Datetime: 09/14/2016 10:55 Labor Evaluation Frequency: 2 NOTED IN ONE HOUR Monitor Mode: External Duration (sec)2399: 50-60 Pattern: Normal: <= 5 Contractions in 10 Minutes Resting Tone [place]: Relaxed Heart Rate FHR Baseline Rate: 130 Monitor Mode: External US FHR Baseline Changes: No Baseline Change Variability: Moderate 6-25 bpm Accelerations: 15X15 Decelerations: None Category: Category I Datetime: 09/14/2016 10:00 Labor Evaluation Frequency: ONE NOTED Monitor Mode: External Duration (sec)2399: 60 Pattern: Normal: <= 5 Contractions in 10 Minutes Resting Tone [place]: Relaxed Contraction Comments: PT WAS UP IN BATHROOM Heart Rate FHR Baseline Rate: 130 Monitor Mode: External US FHR Baseline Changes: No Baseline Change Variability: Moderate 6-25 bpm Accelerations: 15X15 Decelerations: None Category: Category I Datetime: 09/14/2016 09:00 Labor Evaluation Frequency: 8 NOTED IN ONE HOUR Monitor Mode: External Duration (sec)2399: 40-90 Pattern: Normal: <= 5 Contractions in 10 Minutes Resting Tone [place]: Relaxed Contraction Comments: PT DENIES FEELING ANY UC'S Heart Rate FHR Baseline Rate: 130 Monitor Mode: External US FHR Baseline Changes: No Baseline Change Variability: Moderate 6-25 bpm Accelerations: 15X15 Decelerations: None Category: Category I Datetime: 09/14/2016 07:59 Labor Evaluation Frequency: 7 NOTED IN ONE HOUR Monitor Mode: External Duration (sec)2399: 70-120 Pattern: Normal: <= 5 Contractions in 10 Minutes Resting Tone [place]: Relaxed Heart Rate FHR Baseline Rate: 125 Monitor Mode: External US FHR Baseline Changes: No Baseline Change Variability: Moderate 6-25 bpm Accelerations: 15X15 Decelerations: None Category: Category I Datetime: 09/14/2016 07:30 Assessment Type: Ongoing Assessment Maternal Assessment Level of Consciousness: Fully Conscious DTR's/Clonus: DTRs 2+; No Clonus Headache: Denies Blurred Vision: No Respiratory Effort: Unlabored; Regular Rhythm; Equal Expansion Breath Sounds, Left: Clear and Equal Breath Sounds, Right: Clear and Equal Nausea/Vomiting: Denies RUQ Epigastric Pain: Denies Lower Extremities Edema: None Degree: None Upper Extremities Edema: None Degree: None Facial Edema: None Fall Risk Assessment History of Falling: (0) No Secondary Diagnosis: (0) No Ambulatory Aid: (0) Bedrest/Nurse Assist Gait: (0) Normal/Bedrest/Immobile Mental Status: (0) Oriented to Own Ability Datetime: 09/14/2016 07:25 Maternal Assessment Level of Consciousness: Fully Conscious Headache: Denies Blurred Vision: No Nausea/Vomiting: Denies RUQ Epigastric Pain: Denies Facial Edema: None Datetime: 09/14/2016 07:00 Labor Evaluation Frequency: x6 Monitor Mode: External Duration (sec)2399: 60-110 Quality: Mild Resting Tone [place]: Relaxed Contraction Comments: pt without complaint of uc pain Heart Rate FHR Baseline Rate: 130 Monitor Mode: External US FHR Baseline Changes: No Baseline Change Variability: Moderate 6-25 bpm Accelerations: 15X15 Decelerations: None Category: Category I Datetime: 09/14/2016 06:06 Stage of : Antepartum Temperature Route: Oral Datetime: 09/14/2016 06:00 Labor Evaluation Frequency: x3 Monitor Mode: External Duration (sec)2399: 60-70 Quality: Mild Resting Tone [place]: Relaxed Contraction Comments: pt without complaint of uc pain. Heart Rate FHR Baseline Rate: 130 Monitor Mode: External US FHR Baseline Changes: No Baseline Change Variability: Moderate 6-25 bpm Accelerations: 15X15 Decelerations: None Category: Category I Pain Assessment Pain Scale: 0 Pain Presence: None/Denies Datetime: 09/14/2016 05:00 Labor Evaluation Frequency: x4 Monitor Mode: External Duration (sec)2399: 50-100 Quality: Mild Resting Tone [place]: Relaxed Contraction Comments: pt without complaint of uc pain Heart Rate FHR Baseline Rate: 130 Monitor Mode: External US FHR Baseline Changes: No Baseline Change Variability: Moderate 6-25 bpm Accelerations: 15X15 Decelerations: None Category: Category I Datetime: 09/14/2016 04:00 Labor Evaluation Frequency: x6 Monitor Mode: External Duration (sec)2399: 40-90 Quality: Mild Resting Tone [place]: Relaxed Contraction Comments: pt resting without apparent distress. Heart Rate FHR Baseline Rate: 130 Monitor Mode: External US FHR Baseline Changes: No Baseline Change Variability: Moderate 6-25 bpm Accelerations: 15X15 Decelerations: None Category: Category I Datetime: 09/13/2016 21:48 Fall Score: 0 Fall Risk Score Definition: No Risk: No action required Datetime: 09/13/2016 17:00 Fall Score: 0 Fall Risk Score Definition: No Risk: No action required Datetime: 09/13/2016 16:53 EGA: 35.4
[2016-09-20] MEDS ORDERED: LACTATED RINGER'S 1,000 ML IV PRN (17:29)
[2016-09-20] MEDS ORDERED: LIDOCAINE 1% (MPF) 30 ML INJ INJ PRN (17:30)
[2016-09-20] MEDS ORDERED: IBUPROFEN 600 MG TAB PO PRN (17:30)
[2016-09-20] MEDS ORDERED: MISOPROSTOL 200 MCG TAB PR PRN (17:30)
[2016-09-20] MEDS ORDERED: OXYTOCIN 30 UNITS/LR 500 ML IV PRN (17:30)
[2016-09-20] MEDS ORDERED: CARBOPROST 250 MCG INJ IM PRN (17:30)
[2016-09-20] MEDS ORDERED: METHYLERGONOVINE 0.2 MG INJ IM PRN (17:30)
[2016-09-20] MEDS ORDERED: AMPICILLIN 2 GM/NS (PMX) 100 ML IV ONE (17:30)
[2016-09-20] MEDS ORDERED: OXYTOCIN 30 UNITS/LR 500 ML IV SCH ×2 (17:30)
[2016-09-20] MEDS ORDERED: BUTORPHANOL 2 MG INJ IV PRN (17:30)
[2016-09-20 17:37] LABS: ALBUMIN 3.8 g/dl (3.3-4.9); BILIRUBIN,INDIRECT 0.4 mg/dl (0-1.1); BILIRUBIN,TOTAL 0.4 mg/dl (0.2-1.3); CREATININE 0.6 mg/dl (0.44-1.00); POTASSIUM 3.9 mmol/L (3.5-5.1); TOTAL PROTEIN 7.6 g/dl (6.1-8.1)
[2016-09-20] MEDS ORDERED: AMPICILLIN 2 GM/NS (PMX) 100 ML ONE (17:41)
[2016-09-20] MEDS: LACTATED RINGER'S 1,000 ML IV SCH (17:47)
[2016-09-20] MEDS: OXYTOCIN 30 UNITS/LR 500 ML IV SCH (17:48)
[2016-09-20 17:57] LABS: BASOPHILS % 0.5 % (0.0-2.0); EOSINOPHILS # 0.1 10^3/ul (0.0-0.5); EOSINOPHILS % 1.1 % (0.0-7.0); HEMATOCRIT 35.4 % (37.0-47.0); HEMOGLOBIN 12.3 g/dl (12.0-16.0); LYMPHOCYTES # 2.3 10^3/ul (0.8-2.9); LYMPHOCYTES % 36.7 % (15.0-51.0); MEAN CORPUSCULAR HEMOGLOBIN 30.7 pg (29.0-33.0); MEAN CORPUSCULAR HGB CONC 34.7 g/dl (32.0-37.0); MEAN CORPUSCULAR VOLUME 88.3 fl (82.0-101.0); MEAN PLATELET VOLUME 12.9 fl (7.4-10.4); MONOCYTE # 0.6 10^3/ul (0.3-0.9); MONOCYTES % 9.7 % (0.0-11.0); NEUTROPHIL # 3.3 10^3/ul (1.6-7.5); NEUTROPHILS % 51.4 % (39.0-77.0); PLATELET COUNT 261 10^3/UL (140-415); RED BLOOD COUNT 4.01 10^6/ul (4.20-5.40); RED CELL DISTRIBUTION WIDTH 14.2 % (11.5-14.5); WHITE BLOOD COUNT 6.3 10^3/ul (4.8-10.8)
[2016-09-20 18:01] LABS: PT RATIO 0.9
[2016-09-20 18:09] LABS: INR 0.84; PROTIME 11.5 Sec (12.2-14.2)
[2016-09-20 18:10] LABS: PARTIAL THROMBOPLASTIN TIME 24.1 Sec (25.0-35.0)
[2016-09-20] MEDS ORDERED: AMPICILLIN 1 GM/NS (PMX) 50 ML IV SCH (20:00)
[2016-09-21] MEDS: LACTATED RINGER'S 1,000 ML IV SCH ×3 (00:07→16:38)
[2016-09-21 02:11] LABS: INR 0.85; PARTIAL THROMBOPLASTIN TIME 25.4 Sec (25.0-35.0); PROTIME 11.6 Sec (12.2-14.2); PT RATIO 0.9
[2016-09-21 02:16] LABS: ALBUMIN 3.1 g/dl (3.3-4.9); ALBUMIN/GLOBULIN RATIO 0.88; BILIRUBIN,INDIRECT 0.2 mg/dl (0-1.1); BILIRUBIN,TOTAL 0.2 mg/dl (0.2-1.3); CALCIUM 8.9 mg/dl (8.4-10.2); CREATININE 0.59 mg/dl (0.44-1.00); POTASSIUM 3.5 mmol/L (3.5-5.1); TOTAL PROTEIN 6.6 g/dl (6.1-8.1); URIC ACID 6.5 mg/dl (3.1-7.9)
[2016-09-21 02:22] LABS: BASOPHILS % 0.5 % (0.0-2.0); EOSINOPHILS # 0.1 10^3/ul (0.0-0.5); EOSINOPHILS % 1.7 % (0.0-7.0); HEMATOCRIT 33.9 % (37.0-47.0); HEMOGLOBIN 11.6 g/dl (12.0-16.0); LYMPHOCYTES # 2.2 10^3/ul (0.8-2.9); LYMPHOCYTES % 35.5 % (15.0-51.0); MEAN CORPUSCULAR HEMOGLOBIN 30.7 pg (29.0-33.0); MEAN CORPUSCULAR HGB CONC 34.2 g/dl (32.0-37.0); MEAN CORPUSCULAR VOLUME 89.7 fl (82.0-101.0); MEAN PLATELET VOLUME 12.3 fl (7.4-10.4); MONOCYTE # 0.7 10^3/ul (0.3-0.9); MONOCYTES % 11.1 % (0.0-11.0); NEUTROPHIL # 3.1 10^3/ul (1.6-7.5); NEUTROPHILS % 50.9 % (39.0-77.0); PLATELET COUNT 227 10^3/UL (140-415); RED BLOOD COUNT 3.78 10^6/ul (4.20-5.40); RED CELL DISTRIBUTION WIDTH 14.3 % (11.5-14.5); WHITE BLOOD COUNT 6.1 10^3/ul (4.8-10.8)
[2016-09-21] MEDS: OXYTOCIN 30 UNITS/LR 500 ML IV SCH (10:11)
[2016-09-21 10:23] LABS: ADD UMIC YES; UR ASCORBIC ACID NEGATIVE (NEGATIVE); UR BACTERIA FEW /HPF (NONE SEEN); UR BILIRUBIN (Dip) NEGATIVE (NEGATIVE); UR BLOOD (Dip) NEGATIVE (NEGATIVE); UR CLARITY CLEAR (CLEAR); UR COLOR YELLOW (YELLOW); UR GLUCOSE (Dip) NEGATIVE (NEGATIVE); UR KETONES (Dip) NEGATIVE (NEGATIVE); UR LEUKOCYTE ESTERASE (Dip) TRACE Leu/ul (NEGATIVE); UR NITRITE (Dip) NEGATIVE (NEGATIVE); UR RBC 0 /HPF (0-5); UR SPECIFIC GRAVITY (Dip) 1.013 (1.003-1.030); UR SQUAMOUS EPITHELIAL CELL FEW /HPF (FEW); UR TOTAL PROTEIN (Dip) NEGATIVE (NEGATIVE); UR UROBILINOGEN (Dip) NEGATIVE (NEGATIVE)
[2016-09-22] MEDS: LACTATED RINGER'S 1,000 ML IV SCH ×2 (01:16→09:20)
--- NOTE | 2016-09-22 10:54 | LDN ---
Date/Time of Note Date/Time of Note DATE: 09/22/16 TIME: 10:52 Delivery Summary Weeks of Gestation 37+ Placenta Delivered: Spontaneously Meconium: none Episiotomy: No Estimated blood loss: 200 All needle counts correct: Yes Any foreign bodies felt in the: No Problems: Infant Delivery Information Apgars 1 Minute: 9 5 Minute: 9 Suctioning Nose & mouth suctioned at don: Yes Delee suction performed: Yes Umbilical Cord Umbilical cord with: 3 Vessels Cord presentations: no nuchal cord Cord Blood was obtained: Yes Mother & Baby Disposition Disposition Mom & Baby to Maternity; Good: Yes Baby to NICU: No ATUL QUACH M.D. Sep 22, 2016 10:54
--- NOTE | 2016-09-22 10:55 | QN ---
Documentation Comment Called By Nurse,that the patient had a precipitous delivery,attended in the room Delivered Placenta.No laceration ,EBL 200 cc No complication ATUL QUACH M.D. Sep 22, 2016 10:55
[2016-09-22 13:00] VITALS: BP 113/73; PULSE 73; RESP 18
[2016-09-22] MEDS ORDERED: OXYTOCIN 30 UNITS/LR 500 ML IV PRN (13:00)
[2016-09-22] MEDS ORDERED: METHYLERGONOVINE 0.2 MG INJ IM PRN (13:00)
[2016-09-22] MEDS ORDERED: WITCH HAZEL/GLYCERIN PAD PR PRN (13:00)
[2016-09-22] MEDS ORDERED: SENNA/DOCUSATE NA (8.6MG/50MG) TAB PO PRN (13:00)
[2016-09-22] MEDS ORDERED: MISOPROSTOL 200 MCG TAB PR PRN (13:00)
[2016-09-22] MEDS ORDERED: BENZOCAINE 20% 56 ML SPRAY TOP PRN (13:00)
[2016-09-22] MEDS: IBUPROFEN 600 MG TAB PO SCH ×3 (13:00→23:37)
[2016-09-22] MEDS ORDERED: CARBOPROST 250 MCG INJ IM PRN (13:00)
[2016-09-22] MEDS ORDERED: ZOLPIDEM 5 MG TAB PO PRN (13:00)
[2016-09-22] MEDS ORDERED: OXYCODONE/ASPIRIN (4.88/325) TAB PO PRN (13:00)
[2016-09-22] MEDS ORDERED: LANOLIN 7 GM TUBE TOP PRN (13:00)
[2016-09-22] MEDS: LACTATED RINGER'S 1,000 ML IV* SCH ×2 (15:20→21:00)
[2016-09-22 16:00] VITALS: BP 101/59; PULSE 70
[2016-09-22 17:10] VITALS: BP 113/63; PULSE 65
[2016-09-22 19:45] VITALS: BP 136/70; PULSE 66; RESP 19
[2016-09-22] MEDS: OXYTOCIN 30 UNITS/LR 500 ML IV SCH ×2 (20:55→21:30)
[2016-09-22] MEDS: SENNA/DOCUSATE NA (8.6MG/50MG) TAB PO SCH (20:57)
[2016-09-23 04:05] VITALS: BP 104/57; PULSE 68; RESP 19
[2016-09-23] MEDS: OXYTOCIN 30 UNITS/LR 500 ML IV SCH ×3 (05:30→09:30)
[2016-09-23] MEDS: IBUPROFEN 600 MG TAB PO SCH ×4 (05:35→23:32)
[2016-09-23] MEDS: LACTATED RINGER'S 1,000 ML IV* SCH (06:12)
[2016-09-23 08:00] VITALS: BP 106/68; PULSE 60; RESP 18
[2016-09-23 08:19] LABS: BASOPHIL # 0.1 10^3/ul (0.0-0.1); BASOPHILS % 0.5 % (0.0-2.0); EOSINOPHILS # 0.2 10^3/ul (0.0-0.5); HEMATOCRIT 34.5 % (37.0-47.0); HEMOGLOBIN 11.3 g/dl (12.0-16.0); LYMPHOCYTES # 3.3 10^3/ul (0.8-2.9); LYMPHOCYTES % 33.9 % (15.0-51.0); MEAN CORPUSCULAR HEMOGLOBIN 29.7 pg (29.0-33.0); MEAN CORPUSCULAR HGB CONC 32.8 g/dl (32.0-37.0); MEAN CORPUSCULAR VOLUME 90.8 fl (82.0-101.0); MEAN PLATELET VOLUME 12.1 fl (7.4-10.4); MONOCYTE # 0.8 10^3/ul (0.3-0.9); MONOCYTES % 8.2 % (0.0-11.0); NEUTROPHIL # 5.3 10^3/ul (1.6-7.5); NEUTROPHILS % 54.7 % (39.0-77.0); PLATELET COUNT 229 10^3/UL (140-415); RED CELL DISTRIBUTION WIDTH 14.2 % (11.5-14.5); WHITE BLOOD COUNT 9.8 10^3/ul (4.8-10.8)
[2016-09-23] MEDS: SENNA/DOCUSATE NA (8.6MG/50MG) TAB PO SCH ×2 (09:00→21:39)
--- NOTE | 2016-09-23 13:37 | PN ---
Date/Time of Note Date/Time of Note DATE: 09/23/16 TIME: 13:34 OB Subjective Subjective Subjective September Post day 1 Doing Well Afebrile Ambulatory Chest Clear Breasts are soft , Nipples are intact Abdomen is soft Fundus is firm Moderate amount of lochia No calf tenderness No ankle edema Pruritus is improving Laboratory Tests Test 09/23/16 07:50 White Blood Count 9.810^3/ul Red Blood Count 3.8010^6/ul Hemoglobin 11.3g/dl Hematocrit 34.5% Mean Corpuscular Volume 90.8fl Mean Corpuscular Hemoglobin 29.7pg Mean Corpuscular Hemoglobin Concent 32.8g/dl Red Cell Distribution Width 14.2% Platelet Count 83242^3/UL Mean Platelet Volume 12.1fl Neutrophils % 54.7% Lymphocytes % 33.9% Monocytes % 8.2% Eosinophils % 2.0% Basophils % 0.5% Nucleated Red Blood Cells % 0.0/100WBC Neutrophils # 5.310^3/ul Lymphocytes # 3.310^3/ul Monocytes # 0.810^3/ul Eosinophils # 0.210^3/ul Basophils # 0.110^3/ul Nucleated Red Blood Cells # 0.010^3/ul Current Medications Medications (Trade) Dose Ordered Sig/Brea Route PRN Reason Start Time Stop Time Status Last Admin Dose Admin Oxytocin/Lactated Ringer's 500 ml @ 0 mls/hr TITRATE IV 09/20/16 16:30 09/22/16 13:02 DC 09/21/16 10:11 Lactated Ringer's 1,000 ml @ 125 mls/hr Q8H IV 09/20/16 17:29 09/22/16 13:02 DC 09/22/16 09:20 Ampicillin 100 ml @ 100 mls/hr ONCE ONCE IV 09/20/16 17:30 09/20/16 18:29 DC 09/20/16 17:47 Ampicillin (Ampicillin 1 Gm/ NS (Pmx)) 50 ml @ 100 mls/hr Q4H IV 09/20/16 20:00 09/20/16 20:00 DC Butorphanol Tartrate (Stadol) 2 mg Q2H PRN IV PAIN 09/20/16 17:30 09/22/16 13:02 DC 09/22/16 09:30 Lidocaine 30 ml 30 ml ONCE PRN INJ EPISIOTOMY/TEARING 09/20/16 17:30 09/22/16 13:02 DC Oxytocin/Lactated Ringer's 500 ml @ 125 mls/hr ONCE -MAY REPEAT X1 IV 09/20/16 17:30 09/22/16 13:02 DC 09/22/16 11:02 Oxytocin/Lactated Ringer's 500 ml @ 125 mls/hr ONCE IV 09/20/16 17:30 09/22/16 13:02 DC Ibuprofen 600 mg 600 mg ONCE PRN PO Mild Pain (Pain Score 1-3) 09/20/16 17:30 09/22/16 13:02 DC Lactated Ringer's 1,000 ml @ 2,000 mls/hr Q30M PRN IV PRE-EPIDURAL BOLUS 09/20/16 17:29 09/22/16 13:02 DC Oxytocin/Lactated Ringer's 500 ml @ 0 mls/hr ONCE PRN IV For Hemorrhage Management 09/20/16 17:30 09/22/16 13:02 DC Methylergonovine Maleate (Methergine) 0.2 mg ONCE PRN IM VAGINAL BLEEDING 09/20/16 17:30 09/22/16 13:03 DC Carboprost Tromethamine (Hemabate) 250 mcg ONCE PRN IM VAGINAL BLEEDING 09/20/16 17:30 09/22/16 13:03 DC Misoprostol 1000 mcg 1,000 mcg ONCE PRN MO VAGINAL BLEEDING 09/20/16 17:30 09/22/16 13:03 DC Ampicillin 100 ml @ ud STK-MED ONCE .ROUTE 09/20/16 17:41 09/20/16 17:42 DC Lactated Ringer's (Lr) 1,000 ml @ 125 mls/hr Q8H IV* 09/22/16 13:00 09/22/16 15:20 Ibuprofen (Motrin) 600 mg Q6 PO 09/22/16 13:00 09/23/16 12:34 Oxycodone/Aspirin (Percodan) 2 tab Q3H PRN PO PAIN LEVEL 6-10 09/22/16 13:00 09/22/16 19:45 Zolpidem Tartrate (Ambien) 5 mg QHS PRN PO INSOMNIA 09/22/16 13:00 Senna/Docusate Sodium (Senokot-S) 1 tab BID PO 09/22/16 21:00 09/22/16 20:57 Senna/Docusate Sodium (Senokot-S) 1 tab BID PRN PO CONSTIPATION 09/22/16 13:00 Witch Elise/ Glycerin (Tucks Pads) 1 pad BEDSIDE MEDICATION PRN MO HEMORRHOID/EPISIOTMY PAIN 09/22/16 13:00 Benzocaine (Dermoplast [place]) 1 spray BEDSIDE MEDICATION PRN TOP HEMORRHOID/EPISIOTMY PAIN 09/22/16 13:00 Lanolin (Wlm-Z-Hfpcep) 1 applic BEDSIDE MEDICATION PRN TOP BEDSIDE FOR KENDRICK TO NIPPLES 09/22/16 13:00 09/22/16 20:58 Diphtheria/ Tetanus/Acell Pertussis 0.5 ml 0.5 ml ONCE ONCE IM* 09/24/16 09:00 09/24/16 09:01 Oxytocin/Lactated Ringer's 500 ml @ 0 mls/hr ONCE PRN IV For Hemorrhage Management 09/22/16 13:00 09/22/16 16:12 Methylergonovine Maleate (Methergine) 0.2 mg ONCE PRN IM VAGINAL BLEEDING 09/22/16 13:00 09/22/16 17:05 Carboprost Tromethamine (Hemabate) 250 mcg ONCE PRN IM VAGINAL BLEEDING 09/22/16 13:00 Misoprostol 1000 mcg 1,000 mcg ONCE PRN MO VAGINAL BLEEDING 09/22/16 13:00 Oxytocin/Lactated Ringer's 500 ml @ 125 mls/hr Q4H IV 09/22/16 17:30 09/22/16 20:55 New born is doing well, Breast feeding JUDSON VALENZUELA MD Sep 23, 2016 13:37
[2016-09-23 16:00] VITALS: BP 112/64; PULSE 72; RESP 18
[2016-09-23 19:55] VITALS: BP 106/69; PULSE 69; RESP 19
[2016-09-24 03:30] VITALS: BP 108/61; PULSE 75; RESP 19
[2016-09-24] MEDS: IBUPROFEN 600 MG TAB PO SCH ×2 (05:33→12:00)
[2016-09-24 08:30] VITALS: BP 106/71; PULSE 75; RESP 18
[2016-09-24] MEDS: SENNA/DOCUSATE NA (8.6MG/50MG) TAB PO SCH (08:59)
[2016-09-24] MEDS ORDERED: DIPHTH/TET/ACEL PERTUSS (ADULT) 0.5 ML VIAL IM* ONE (09:00)
--- NOTE | 2016-09-24 11:26 | DS ---
Date/Time of Note Date/Time of Note DATE: 09/24/16 TIME: 11:24 Discharge Summary Admission/Discharge Info Admit Date/Time Sep 20, 2016 at 15:55 Discharge Date/Time September 24, 2016 at 11:20 AM Discharge Diagnosis Normal vaginal delivery day 2 Patient Condition: Good Procedures Normal vaginal delivery Hx of Present Illness Term in labor Hospital Course Satisfactory recovery uneventful Home Meds Reported Medications Vit-Iron Fumarate-FA ( Tablet) 1 Each Tablet, 1 TAB PO, TAB 09/13/16 Follow-up Plan instruction given recommended to make appointment in 2 weeks for check Primary Care Provider Care Physician No Primary Time spent on discharge: < 30 minutes JANET EID MD Sep 24, 2016 11:26
== END 2016-09-24 18:36 | disposition home or self-care (01) | DRG 775 ==
LOC: OBT 12:45 → L-D 12:45 → OBT 15:55 → L-D 15:55 → PP1 09-22 12:57
PROVIDERS: ADMIT Obstetrics & Gynecology; ATTEND Obstetrics & Gynecology
PROC: 10E0XZZ Delivery of Products of Conception, External Approach (ICD-10-PCS; principal; 2016-09-22)
PROC: 3E033VJ Introduction of Other Hormone into Peripheral Vein, Percutaneous Approach (ICD-10-PCS; 2016-09-22)
DX: O80 Encounter for full-term uncomplicated delivery (principal); Z37.0 Single live birth; Z3A.37 37 weeks gestation of pregnancy
CPT/HCPCS: 76818; 80053; 80076; 81001; 84560; 85025; 85384; 85610; 85730; 86592; 86900; 86901; 90715; G0463; J0290; J0595; J2210; J2590; J7120

== ENCOUNTER 2016-10-10 15:45 | Emergency (ER) | payer MEDICAID ==
[2016-09-20 13:11] VITALS: Wt 76.0 kg
[~2016-10-10] VITALS: Wt 76.0 kg
[2016-10-10] MEDS ORDERED: ACETAMINOPHEN 325 MG TAB PO ONE (16:30)
[2016-10-10 16:41] LABS: BASOPHILS % 0.3 % (0.0-2.0); EOSINOPHILS # 0.1 10^3/ul (0.0-0.5); EOSINOPHILS % 0.7 % (0.0-7.0); HEMATOCRIT 35.5 % (37.0-47.0); HEMOGLOBIN 11.9 g/dl (12.0-16.0); LYMPHOCYTES % 15.7 % (15.0-51.0); MEAN CORPUSCULAR HEMOGLOBIN 30.1 pg (29.0-33.0); MEAN CORPUSCULAR HGB CONC 33.5 g/dl (32.0-37.0); MEAN CORPUSCULAR VOLUME 89.9 fl (82.0-101.0); MEAN PLATELET VOLUME 9.9 fl (7.4-10.4); MONOCYTES % 7.7 % (0.0-11.0); NEUTROPHILS % 74.8 % (39.0-77.0); PLATELET COUNT 411 10^3/UL (140-415); RED BLOOD COUNT 3.95 10^6/ul (4.20-5.40); RED CELL DISTRIBUTION WIDTH 13.7 % (11.5-14.5); WHITE BLOOD COUNT 12.5 10^3/ul (4.8-10.8)
[2016-10-10 16:51] LABS: ADD UMIC YES; UR ASCORBIC ACID NEGATIVE (NEGATIVE); UR BILIRUBIN (Dip) NEGATIVE (NEGATIVE); UR BLOOD (Dip) 2+ mg/dL (NEGATIVE); UR CLARITY CLEAR (CLEAR); UR COLOR YELLOW (YELLOW); UR GLUCOSE (Dip) NEGATIVE (NEGATIVE); UR KETONES (Dip) NEGATIVE (NEGATIVE); UR LEUKOCYTE ESTERASE (Dip) 2+ Leu/ul (NEGATIVE); UR NITRITE (Dip) NEGATIVE (NEGATIVE); UR RBC 5 /HPF (0-5); UR SPECIFIC GRAVITY (Dip) 1.008 (1.003-1.030); UR TOTAL PROTEIN (Dip) 1+ mg/dl (NEGATIVE); UR UROBILINOGEN (Dip) NEGATIVE (NEGATIVE)
[2016-10-10 17:07] LABS: ALBUMIN 3.7 g/dl (3.3-4.9); ALBUMIN/GLOBULIN RATIO 0.9; BILIRUBIN,INDIRECT 0.1 mg/dl (0-1.1); BILIRUBIN,TOTAL 0.1 mg/dl (0.2-1.3); CALCIUM 8.5 mg/dl (8.4-10.2); CREATININE 0.75 mg/dl (0.44-1.00); POTASSIUM 3.6 mmol/L (3.5-5.1); TOTAL PROTEIN 7.8 g/dl (6.1-8.1)
[2016-10-10] MEDS ORDERED: CEFTRIAXONE 1 GM/50 ML (PMX) 50 ML IVPB ONE (17:30)
[2016-10-10] MEDS ORDERED: SOD CHLORIDE 0.9% 1,000 ML IV ONE (17:49)
--- NOTE | 2016-10-10 17:58 | RADRPT ---
PROCEDURE: US Pelvis. CLINICAL INDICATION: Pelvic pain and vaginal bleeding. TECHNIQUE: The pelvis was evaluated with transabdominal sonography in the axial and sagittal plane s. COMPARISON: No prior study is available for comparison. FINDINGS: Uterus: 15.3 x 6.0 x 8.9 cm. Endometrium: The endometrium is thickened and heterogeneous measuring 19.0 mm. There are small brittnee ons of vascularity within the endometrium which may indicate retained products of conception. Right ovary: Not visualized. Left ovary: 3.4 x 1.2 x 1.6 cm. Uterine masses: None. Ovarian masses: The right ovary is not visualized. The left ovary is normal. Color Doppler and puls ed Doppler sonography demonstrate normal flow to the ovaries. Other pelvic masses: None. Free fluid: None. IMPRESSION: 1. Thickened and heterogeneous endometrium with possible retained products of conception. 2. Right ovary not visualized. 3. Otherwise normal pelvic ultrasound. RPTAT: QQ .Tim Bee MD, MD Date Time Electronically viewed and signed by .Tim Bee MD, on 10/10/2016 17:57 .R/
[2016-10-10] MEDS ORDERED: KETOROLAC 30 MG INJ IV STA (18:48)
[2016-10-10] MEDS ORDERED: AMOX1TAB10 PO (19:07)
[2016-10-10] MEDS ORDERED: IBUP-1542 PO (19:08)
[2016-10-10 19:11] VITALS: BP 90/52; PULSE 65; RESP 14; TEMP 100.1
--- NOTE | 2016-10-10 19:20 | ERD ---
ER Documentation Chief Complaint Date/Time DATE: 10/10/16 TIME: 19:12 Chief Complaint dysuria,fever x2 weeks HPI This 31-year-old female complains of dysuria for last 2 weeks. She has also had fevers which she states also for the last 2 weeks. She is well for triage. She is approximately 3 weeks . She has had some darkish spotting but no purulent discharge. She has no flank pain or upper abdominal pain ROS All systems reviewed and are negative except as per history of present illness. Medications Home Meds Active Scripts Ibuprofen* (Motrin*) 600 Mg Tab, 600 MG PO Q6, #20 TAB Prov:DENZEL CARCAMO MD 10/10/16 Amoxicillin/Potassium Clav (Amox-Clav 875-125 mg Tablet) 875-125 mg Tab, 1 TAB PO BID for 10 Days, #14 TAB Prov:DENZEL CARCAMO MD 10/10/16 Reported Medications Vit-Iron Fumarate-FA ( Tablet) 1 Each Tablet, 1 TAB PO, TAB 09/13/16 Allergies Allergies: Coded Allergies: No Known Drug Allergies (Verified Allergy, Unknown, 09/13/16) No Known Drug Allergy (Verified Allergy, Unknown, 01/13/14) PMhx/Soc Medical and Surgical Hx: pt denies Medical Hx, pt denies Surgical Hx History of Surgery: No Anesthesia Reaction: No Hx Neurological Disorder: No Hx Respiratory Disorders: No Hx Cardiac Disorders: No Hx Psychiatric Problems: No Hx Miscellaneous Medical Probl: No Hx Alcohol Use: No Hx Substance Use: No Hx Tobacco Use: No Smoking Status: Never smoker Physical Exam Vitals Vital Signs Date Time Temp Pulse Resp B/P Pulse Ox O2 Delivery O2 Flow Rate FiO2 10/10/16 19:11 100.1 65 14 90/52 99 Room Air 10/10/16 15:56 104.1 112 20 119/73 99 Physical Exam Const: [], [id number] Head: Atraumatic Eyes: Normal Conjunctiva ENT: Normal External Ears, Nose and Mouth. Neck: Full range of motion..~ No meningismus. Resp: Clear to auscultation bilaterally Cardio: Regular rate and rhythm, no murmurs Abd: Soft, suprapubic tenderness. No tenderness at McBurney's point no Farias sign. No CVA tenderness., non distended. Normal bowel sounds Skin: No petechiae or rashes Back: No midline or flank tenderness Ext: No cyanosis, or edema Neur: Awake and alert Psych: Normal Mood and Affect Result Diagram: 10/10/16 1629 10/10/16 1629 Results 24 hrs Laboratory Tests Test 10/10/16 16:29 White Blood Count 12.510^3/ul Red Blood Count 3.9510^6/ul Hemoglobin 11.9g/dl Hematocrit 35.5% Mean Corpuscular Volume 89.9fl Mean Corpuscular Hemoglobin 30.1pg Mean Corpuscular Hemoglobin Concent 33.5g/dl Red Cell Distribution Width 13.7% Platelet Count 29724^3/UL Mean Platelet Volume 9.9fl Neutrophils % 74.8% Lymphocytes % 15.7% Monocytes % 7.7% Eosinophils % 0.7% Basophils % 0.3% Nucleated Red Blood Cells % 0.0/100WBC Neutrophils # (Manual) 910^3/ul Lymphocytes # 2.010^3/ul Monocytes # 1.010^3/ul Eosinophils # 0.110^3/ul Basophils # 0.010^3/ul Nucleated Red Blood Cells # 0.010^3/ul Urine Color YELLOW Urine Clarity CLEAR Urine pH 6.0 Urine Specific [place] 1.008 Urine Ketones NEGATIVEmg/dL Urine Nitrite NEGATIVEmg/dL Urine Bilirubin NEGATIVEmg/dL Urine Urobilinogen NEGATIVEmg/dL Urine Leukocyte Esterase 2+Red/ul Urine Microscopic RBC 5/HPF Urine Microscopic WBC 20/HPF Urine Hemoglobin 2+mg/dL Urine Glucose NEGATIVEmg/dL Urine Total Protein 1+mg/dl Sodium Level 142mmol/L Potassium Level 3.6mmol/L Chloride Level 101mmol/L Carbon Dioxide Level 25mmol/L Anion Gap 20 Blood Urea Nitrogen 10mg/dl Creatinine 0.75mg/dl Glucose Level 99mg/dl Calcium Level 8.5mg/dl Total Bilirubin 0.1mg/dl Direct Bilirubin 0.00mg/dl Indirect Bilirubin 0.1mg/dl Aspartate Amino Transf (AST/SGOT) 56IU/L Alanine Aminotransferase (ALT/SGPT) 60IU/L Alkaline Phosphatase 182IU/L Total Protein 7.8g/dl Albumin 3.7g/dl Globulin 4.10g/dl Albumin/Globulin Ratio 0.90 Lipase 63U/L Beta HCG, Quantitative < 2.4mIU/ml Current Medications Medications (Trade) Dose Ordered Sig/Brea Route PRN Reason Start Time Stop Time Status Last Admin Dose Admin Acetaminophen 650 mg 650 mg ONCE ONCE PO 10/10/16 16:30 10/10/16 16:31 DC 10/10/16 16:28 Ceftriaxone Sodium 50 ml @ 100 mls/hr ONCE ONCE IVPB 10/10/16 17:30 10/10/16 17:59 DC 10/10/16 17:30 Sodium Chloride (NS) 1,000 ml @ 0 mls/hr Q0M ONCE IV 10/10/16 17:49 10/10/16 17:50 DC 10/10/16 18:12 Ketorolac Tromethamine (Toradol) 30 mg ONCE STAT IV 10/10/16 18:48 10/10/16 18:50 DC 10/10/16 18:55 Procedures/MDM Patient was given Tylenol for fever. Fever defervesced at 100.1. Tachycardia resolved . White blood cell count 12.5. Some slight decrease in hemoglobin 11.9. CMP is normal. Urine shows positive leukocyte esterase, many WBCs sent for culture. Quantitative hCG is undetectable. Pelvic ultrasound shows thickened endometrium at 19 mm and no adnexal masses or tubo-ovarian abscess. No evidence of ovarian torsion. Patient is given Rocephin 1 g IV and 1 L normal saline IV. Call was placed to Dr. QUACH who performed. Delivery. Case was discussed. He advised negative hCG and thickened endometrium is normal at this level . Patient he believes likely has UTI. Patient will be treated with Augmentin and fever control and fluids at home and follow-up with this week. Patient had minimal suprapubic tenderness and was alert not ill-appearing on serial exam. Current signs or symptoms do not suggest appendicitis, acute abdomen, sepsis, the patient is advised to recheck for new or worsening symptoms in the next day or with OB this week as directed. Departure Diagnosis: Primary Impression: UTI (urinary tract infection) Urinary tract infection type: acute cystitis Hematuria presence: without hematuria Qualified Code: N30.00 - Acute cystitis without hematuria Additional Impression: Fever Fever type: unspecified Qualified Code: R50.9 - Fever, unspecified fever cause Condition: Stable Patient Instructions: Understanding Urinary Tract Infections (UTIs), Fever Control (Adult) Additional Instructions: ORINA TIENE INFECCION. CHEQUE CON CONCEPCION DOCTOR DE EMABAAZO ESTA SEMANA. Cheque otro vez con concepcion doctor primario en el proximo trivedi or regresa para mas o nueva simptomas- FIEBRE MAS QUE 2 TRIVEDI MAS, VOMITO, NUEVA SIMPTOMAS..JUDY MUCH AGUA. DENZEL CARCAMO MD Oct 10, 2016 19:19
== END 2016-10-10 19:26 | disposition home or self-care (01) ==
LOC: FTE 15:45
DX: N30.00 Acute cystitis without hematuria (principal); R50.9 Fever, unspecified; R10.2 Pelvic and perineal pain
CPT/HCPCS: 36415; 76856; 80053; 81001; 83690; 84702; 85025; 87086; 96374; 96375; J0696; J1885; J7030; Z7502; Z7610